=== PATIENT | male | born 1980 | race Two or more races ===

== ENCOUNTER 2024-04-11 08:02 | Emergency (ER) | payer OTHER ==
[~2024-04-11] VITALS: Ht 170.2 cm; Wt 86.2 kg
[2024-04-11 08:06] VITALS: BP 124/76; TEMP 97.9; O2SAT 97
[2024-04-11] MEDS ORDERED: AMOX-427 PO (08:15)
[2024-04-11] MEDS ORDERED: TDAP [DIPH/PERTUSSIS/TET] 0.5 ML VIAL IM ONE (08:18)
[2024-04-11] MEDS: TDAP [DIPH/PERTUSSIS/TET] 0.5 ML VIAL IM ONE (08:21)
== END 2024-04-11 08:56 | disposition home or self-care (01) ==
LOC: ER 08:09
DX: S61.432A Puncture wound without foreign body of left hand, initial encounter (principal); W54.0XXA Bitten by dog, initial encounter; Y93.89 Activity, other specified; Y92.89 Other specified places as the place of occurrence of the external cause; Y99.8 Other external cause status
CPT/HCPCS: 99283; 90471; 90715; A6403